=== PATIENT | female | born 1980 | race Hispanic/Latino ===

== ENCOUNTER 2019-01-11 06:13 | Observation (INO) | payer MEDICAID ==
[2019-01-10 17:07] VITALS: BP 141/72
[2019-01-10 17:28] LABS: BASOPHILS % (AUTO) 0.5 % (0.0-5.0); EOSINOPHILS % (AUTO) 1.9 % (0.0-8.0); HEMATOCRIT 37.5 % (36-48); LYMPHOCYTES % (AUTO) 26.8 % (21.0-51.0); MEAN CORPUSCULAR HEMOGLOBIN 29.4 pg (27.0-33.0); MEAN CORPUSCULAR HGB CONC 33.4 g/dL (32.0-36.0); MEAN CORPUSCULAR VOLUME 88.1 fL (79-99); MONOCYTES % (AUTO) 5.4 % (3.0-13.0); NEUTROPHILS % (AUTO) 65.4 % (40.0-77.0); PLATELET COUNT (AUTO) 336 K/uL (130-400); RED BLOOD CELL COUNT(AUTO) 4.26 MIL/uL (4.00-5.50); RED CELL DISTRIBUTION WIDTH 14.2 % (11.0-15.5); WHITE BLOOD COUNT (AUTO) 8.9 K/uL (4.8-10.8)
[~2019-01-11] VITALS: Ht 157.5 cm; Wt 79.4 kg
[2019-01-11] VITALS (24 sets, daily range): BP systolic 114–140; BP diastolic 62–90
[2019-01-11] MEDS: CEFAZOLIN SODIUM 1 GM VIAL IVP SCH ×2 (06:00→08:37)
[~2019-01-11 06:13] MED LIST: LACTATED RINGERS 1000ML 1,000 ML IV SCH
[2019-01-11] MEDS ORDERED: LIDOCAINE PF 2% 5ML ABBOJECT ONE (07:03)
[2019-01-11] MEDS ORDERED: PROPOFOL 10 MG/ML 20ML VIAL IV ONE (07:03)
[2019-01-11] MEDS ORDERED: GLYCOPYRROLATE 1 MG/5 ML SYRINGE ONE (07:03)
[2019-01-11] MEDS ORDERED: MIDAZOLAM HCL 1 MG/ML 2ML VIAL ONE (07:04)
[2019-01-11] MEDS ORDERED: NEOSTIGMINE 5MG/5ML SYR IV ONE (07:04)
[2019-01-11] MEDS ORDERED: ROCURONIUM 10MG/1ML SYR 10 MG/ML ML ONE (07:04)
[2019-01-11] MEDS ORDERED: FENTANYL CITRATE PF 50 MCG/1 ML 2ML VIAL ONE ×3 (07:04→09:33)
[2019-01-11] MEDS ORDERED: DEXAMETHASONE SOD PHOSPHATE 10MG/ML 1ML VIAL ONE (08:53)
[2019-01-11] MEDS ORDERED: ONDANSETRON HCL 4 MG/2 ML VIAL ONE (08:55)
[2019-01-11] MEDS ORDERED: ESMOLOL HCL 10 MG/ML 10 ML VIAL ONE (09:34)
[2019-01-11] MEDS ORDERED: MEPERIDINE-PF 25 MG/ML SYG ONE ×3 (10:39→11:54)
[2019-01-11] MEDS ORDERED: IBUPROFEN 600 MG TABLET PO PRN (11:30)
[2019-01-11] MEDS ORDERED: DOCUSATE SODIUM 100 MG CAP PO PRN (11:30)
[2019-01-11] MEDS ORDERED: BISACODYL 10 MG SUPP.RECT RC PRN (11:30)
[2019-01-11] MEDS ORDERED: SIMETHICONE 80 MG TAB.CHEW PO PRN (11:30)
[2019-01-11] MEDS ORDERED: MEPERIDINE-PF 75 MG/ML SYG IM PRN (11:30)
[2019-01-11] MEDS ORDERED: ONDANSETRON HCL 4 MG/2 ML VIAL IVP PRN (11:30)
[2019-01-11] MEDS ORDERED: PROMETHAZINE HCL 25 MG/ML 1ML AMPULE IM PRN ×2 (11:30)
[2019-01-11] MEDS ORDERED: MEPERIDINE-PF 50 MG/ML SYG ONE (11:53)
[2019-01-11] MEDS: ACETAMINOPHEN-CODEINE 300/30MG TAB PO PRN ×3 (15:01→21:33)
[2019-01-11] MEDS: DEXTROSE 5 %-0.45 % NACL 1,000 ML IV PRN (17:56)
--- NOTE | 2019-01-11 21:45 | NUR ---
assisted pt to stand at bedside, pt started to feel dizzy and assisted back to bed, offered bedpan. Addendum: 01/12/19 at 0041 by CHRISTINA BELLA RN Amended: Links added.
--- NOTE | 2019-01-12 00:10 | NUR ---
assisted pt to bedside commode, and back to bed. pt tolerated well, denies dizziness. Addendum: 01/12/19 at 0042 by CHRISTINA BELLA RN Amended: Links added.
[2019-01-12] MEDS: DEXTROSE 5 %-0.45 % NACL 1,000 ML IV PRN (01:08)
[2019-01-12] MEDS: ACETAMINOPHEN-CODEINE 300/30MG TAB PO PRN (01:10)
[2019-01-12 03:35] VITALS: BP 102/75
--- NOTE | 2019-01-12 04:00 | NUR ---
ambulated to the restroom without assistance, pt tolerated well. denies dizziness or lightheadedness. Addendum: 01/12/19 at 0627 by CHRISTINA BELLA RN Amended: Links added.
[2019-01-12] MEDS ORDERED: HYDROCODONE/ACETAMINOPHEN 5/325 MG TAB PO PRN (05:30)
[2019-01-12] MEDS ORDERED: IBUPROFEN 800 MG TAB PO PRN (05:30)
[2019-01-12 05:58] LABS: HEMATOCRIT 33.7 % (36-48); MEAN CORPUSCULAR HGB CONC 33.1 g/dL (32.0-36.0); MEAN CORPUSCULAR VOLUME 87.7 fL (79-99); PLATELET COUNT (AUTO) 316 K/uL (130-400); RED BLOOD CELL COUNT(AUTO) 3.84 MIL/uL (4.00-5.50); RED CELL DISTRIBUTION WIDTH 14.1 % (11.0-15.5); WHITE BLOOD COUNT (AUTO) 12.4 K/uL (4.8-10.8)
[2019-01-12 07:27] VITALS: BP 125/74
--- NOTE | 2019-01-12 08:27 | NUR ---
DARRICK RAYMOND ROUNDING ON PATIENT. POC DISCUSSED. QUESTIONS INVITED AND ANSWERED. NEW ORDERS RECEIVED. PATIENT OKAY FOR DISCHARGE. Addendum: 01/12/19 at 1006 by SHONDA LIANG LVN LVN OKAY FOR DISCHARGE AFTER LUNCH
--- NOTE | 2019-01-12 10:25 | NUR ---
PATIENT AMBULATING IN HALLWAY ACCOMPANIED BY FAMILY MEMBERS. NO C/O DIZZINESS. GAIT IS STEADY .
[2019-01-12 11:29] VITALS: BP 113/67
--- NOTE | 2019-01-12 13:35 | NUR ---
DISCHARGE PATIENT LEFT UNIT VIA WHEELCHAIR WITH BELONGINGS IN HAND. PERSONAL VEHICLE USED FOR TRANSPORTATION. NO COMPLAINTS OR CONCERNS ADDRESSED FROM PATIENT ON DISCHARGE.
== END 2019-01-12 13:35 | disposition home or self-care (01) ==
LOC: DAH 06:13 → WSH 11:39
PROVIDERS: ADMIT Obstetrics & Gynecology; ATTEND Obstetrics & Gynecology
DX: D25.9 Leiomyoma of uterus, unspecified (principal); K46.9 Unspecified abdominal hernia without obstruction or gangrene
CPT/HCPCS: 36415 ×2; 57268; 58554; 84703; 85025; 85027; 86850; 86900; 86901; 88307; 96372; A4215 ×2; A4221; A4222; A4223; A4344; A4351; A4510; A4600; A4649 ×3; A4663; A6260; C1769 ×2; G0378 ×27; J0690; J1100; J2001; J2175 ×4; J2250; J2405; J2550; J2704; J2710; J3010 ×3; J3490 ×2; J7030; J7120

== ENCOUNTER 2023-12-17 18:35 | Emergency (ER) | payer SELFPAY ==
[~2023-12-17] VITALS: Ht 157.5 cm; Wt 71.7 kg
[2023-12-17 19:11] LABS: APPEARANCE,URINE CLEAR (CLEAR); BILIRUBIN,URINE NEGATIVE (NEGATIVE); COLOR,URINE COLORLESS (YELLOW); GLUCOSE, URINE (UA) NEGATIVE (NEGATIVE); KETONES,URINE 5 mg/dL (NEGATIVE); LEUKOCYTE ESTERASE ,URINE NEGATIVE Leu/uL (NEGATIVE); NITRATE,URINE NEGATIVE (NEGATIVE); OCCULT BLOOD,URINE SMALL (NEGATIVE); PROTEIN,URINE NEGATIVE (NEGATIVE); UROBILINOGEN,URINE 0.2 mg/dL (0.2-1.0)
[2023-12-17 19:12] LABS: BASOPHILS # (AUTO) 0.04 K/uL (0.00-0.20); BASOPHILS % (AUTO) 0.3 % (0.0-5.0); EOSINOPHILS # (AUTO) 0.11 K/uL (0.00-0.70); EOSINOPHILS % (AUTO) 0.8 % (0.0-8.0); HEMATOCRIT 37.2 % (36-48); IMMATURE GRANULOCYTE ABSOLUTE 0.05 K/uL (0-1); LYMPHOCYTES # (AUTO) 1.7 K/uL (1.0-4.8); MEAN CORPUSCULAR HEMOGLOBIN 30.1 pg (27.0-33.0); MEAN CORPUSCULAR HGB CONC 33.6 g/dL (32.0-36.0); MEAN CORPUSCULAR VOLUME 89.6 fL (79-99); MONOCYTES # (AUTO) 1.2 K/uL (0.1-1.0); MONOCYTES % (AUTO) 9.1 % (3.0-13.0); NEUTROPHILS % (AUTO) 76.4 % (40.0-77.0); PLATELET COUNT (AUTO) 304 K/uL (130-400); RED BLOOD CELL COUNT(AUTO) 4.15 MIL/uL (4.00-5.50); RED CELL DISTRIBUTION WIDTH 13.6 % (11.0-15.5); WHITE BLOOD COUNT (AUTO) 13.1 K/uL (4.8-10.8)
[2023-12-17 19:14] LABS: ADD UA MICROSCOPIC YES
[2023-12-17 19:15] LABS: RBC,URINE 0-1 /HPF (0-1); SQUAMOUS EPITHELIAL CELL,UR RARE /HPF (0-2); WBC,URINE 0-1 /HPF (0-1)
[2023-12-17 19:20] LABS: CREATININE 0.8 mg/dL (0.5-1.0); POTASSIUM 3.8 mmol/L (3.5-5.1)
[2023-12-17] MEDS: 0.9%NACL 1000ML 1,000 ML IV ONE (19:27)
[2023-12-17] MEDS: ketOROlac 30MG VIAL (30MG/ML) IVP ONE (19:27)
[2023-12-17] MEDS ORDERED: IOHEXOL 350 MG/ML 100ML INFUS..BTL IV ONE (19:42)
[2023-12-17] MEDS ORDERED: IBUP-2077 PO (20:27)
[2023-12-17] MEDS ORDERED: AMOX1TAB16 PO (20:27)
[2023-12-17] MEDS: AMOX/CLAV 875/125MG TAB PO ONE (20:38)
[2023-12-17 20:40] VITALS: BP 119/76; PULSE 86; RESP 17; TEMP 98; O2SAT 99
== END 2023-12-17 20:51 | disposition home or self-care (01) ==
LOC: EDH 18:35
DX: K57.92 Diverticulitis of intestine, part unspecified, without perforation or abscess without bleeding (principal); R30.9 Painful micturition, unspecified; Z90.710 Acquired absence of both cervix and uterus; Z98.890 Other specified postprocedural states
CPT/HCPCS: 99285; 74177; 96374; 96361; 80048; 85025; 81001; 81025; 36415; J7030; J1885; Q9967